=== PATIENT | female | born 1935 | race Caucasian/White ===

== ENCOUNTER 2019-07-28 | Inpatient (IN) | payer MEDICARE ==
--- NOTE | 2019-07-28 16:38 | NUR ---
PT TO ROOM VIA WC ABLE TO STAND AND TRANSFER SELF.
--- NOTE | 2019-07-28 16:50 | NUR ---
RECIEVED CARE OF PATIENT. PT RESTING ON STRETCHER. IV ATTEMPTS IN PROGRESS. PT AO X 3. SKIN PINK WARM AND DRY. VOMITING X 3 DAYS. NO RESPIRATORY OR CARDIAC COMPLAINTS. ABD DISTENDED, PAIN PRESENT WITH PALPATION. PT RESPORTS HAD DIARRHEA STOOL TODAY. AT BEDSIDE.
[2019-07-28 17:06] LABS: HEMATOCRIT 36.3 % (37.0-47.0); HEMOGLOBIN 11.9 g/dl (12.0-16.0); IMMATURE GRANULOCYTES 0.3 % (0.0-5.0); MEAN CELL VOLUME 88.1 fL CALC (80.0-100.0); MEAN CORPUSCULAR HGB 28.9 pG CALC (26.0-32.0); MEAN CORPUSCULAR HGB CONC 32.8 g/L CALC (32.0-36.0); NEUT# 12.8 thou/uL (2.00-7.15); RED BLOOD COUNT 4.12 mill/uL (4.20-5.60); RED CELL DISTRI WIDTH 14.1 % (11.5-15.5)
--- NOTE | 2019-07-28 17:09 | NUR ---
PT HAD APPROX 100 ML EMESIS OF STOOL SMELLING LIQUID. PT REPORTS EMESIS HAD BEEN FOUL TASTING AND SMELLING SINCE YESTERDAY.
[2019-07-28 17:24] LABS: ALBUMIN 4.5 g/dL (3.2-5.0); ALKALINE PHOSPHATASE 75 u/l (38-126); ANION GAP 18 (6-22 (CALC)); BILIRUBIN, TOTAL 1.1 mg/dL (0.0-1.4); BUN 38 mg/dL (8-23); BUN/CREATININE RATIO 73 (12-20 (CALC)); CARBON DIOXIDE 27 mmol/l (22-30); CHLORIDE 94 mmol/l (95-108); CREATININE 0.5 mg/dL (0.5-1.0); GFR > 60 ML/MIN (>=60 (CALC)); GFR FOR AFR.AMER. > 60 ML/MIN (>=60 (CALC)); LIPASE 49 u/l (23-300); SGOT/AST 44 u/l (9-36); SODIUM 134 mmol/l (137-146); TOTAL PROTEIN 7.9 g/dL (6.3-8.2)
--- NOTE | 2019-07-28 18:05 | NUR ---
PT RETURNED FROM XRAY. REPORTS RELIEF FROM VOMITING. AMBULATORY TO BATHROOM UA OBTAINED
[2019-07-28 18:09] LABS: URINE BILIRUBIN - DIPSTICK NEGATIVE (NEGATIVE); URINE BLOOD DIPSTICK LARGE (NEGATIVE); URINE COLOR YELLOW; URINE GLUCOSE - DIPSTICK NEGATIVE (NEGATIVE); URINE KETONE NEGATIVE (NEGATIVE); URINE LEUK ESTERASE NEGATIVE (NEGATIVE); URINE NITRITE - DIPSTICK NEGATIVE (Negative); URINE PROTEIN - DIPSTICK 30 mg/dL (NEG-TRACE); URINE SPECIFIC GRAVITY 1.025
[2019-07-28 18:23] LABS: URINE RBC 25-50 RBC/hpf (0-5); URINE WBC 0-2 WBC/hpf (0-5)
[2019-07-28] MEDS ORDERED: CARVEDILOL25 MG PO (18:54)
[2019-07-28] MEDS ORDERED: LISINOPRIL20 M1 PO (18:55)
[2019-07-28] MEDS ORDERED: HYDROCHLOROT12.5 M1 PO (18:56)
[2019-07-28] MEDS ORDERED: SIMVASTATIN40 MG PO (18:56)
[2019-07-28] MEDS ORDERED: ASPIRIN81 MG PO (18:58)
--- NOTE | 2019-07-28 19:00 | NUR ---
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 UNABLE TO DISCOVER THIS INFORMATION
--- NOTE | 2019-07-28 19:15 | NUR ---
PT RESTING. C/O NAUSEA. #18 NG IN RIGHT NARES. TO LIS AFTER PLACEMENT CHECKED WITH AUSCULTATION. NG DRAINING A MOD AMT OF BROWN LIQUID WITH FECAL SMELL. SECURED TO NOSE. TOLERATED PROCEDURE WELL. 500 CC DRAINED IMMEDIATELY. SISTER AND TO BEDSIDE AFTER PROCEDURE.
--- NOTE | 2019-07-28 20:30 | NUR ---
PT RESTING. NAD. NG DRAINING. NO C/O. ADVISED WILL BE GOING UPSTAIRS AFTER CALLING REPORT.
--- NOTE | 2019-07-28 20:51 | NUR ---
ATTEMPTED TO CALL REPORT. NO ANSWER.
--- NOTE | 2019-07-28 21:11 | NUR ---
REPORT TO FAUSTINO
--- NOTE | 2019-07-28 21:18 | NUR ---
NG TUBE 800 CC OUT. TO FLOOR VIA STRETCHER WITH POCKET MONITOR. UPON ARRIVAL TO FLOOR PT AMBULATED TO SCALE AND THEN TO STRETCHER WITH ASSIST. TOLERATED WELL.
[2019-07-28 21:25] VITALS: BP 179/71
--- NOTE | 2019-07-28 21:25 | NUR ---
PT ARRIVED TO MS2 VIA STRETCHER ACCOMPANIED BY ER NURSE. PT AMBULATED WITH STEADY GAIT TO STANDING SCALE, WT OBTAINED. ORIENTED PT TO ROOM AND CALL LIGHT. DISCUSSED POC, NGT TO Judith WEISS, CHECKED PLACEMENT. NGT TO LIS NOTED LIGHT BROWN LIQUID TO CANISTER. SMELL OF FECAL MATTER. BS ACTIVE X4, INITIATED IVF. ADMISSION ASSESSMENT COMPLETED. CALL LIGHT IN REACH,CONTINUE TO MONITOR.
[2019-07-28 22:04] VITALS: BP 171/69
--- NOTE | 2019-07-28 22:31 | NUR ---
PT MEDICATED FOR ELEVATED BP. ADDITIONAL BLANKET PROVIDED PER REQUEST. PT DENIED ANY OTHER NEEDS AT THIS TIME.
[2019-07-28 23:50] VITALS: BP 118/63
--- NOTE | 2019-07-29 | NUR ---
PT RESTING IN BED, NO SIGNS OF DISTRESS NOTED, RESP EVEN AND UNLABORED. PT VOICES NO NEEDS OR COMPLAINTS AT THIS TIME, CALL LIGHT IN REACH,CONTINUE TO MONITOR.
--- NOTE | 2019-07-29 03:49 | NUR ---
PT RESTING IN BED, NEW CONTAINER HOLDING FLUID FROM NGT CHANGED. 700ML OF BROWN LIQUID STOOL REMOVED. PT VOICES NO NEEDS OR COMPLAINTS AT THIS TIME, CALL LIGHT IN REACH,CONTINUE TO MONITOR.
[2019-07-29 03:50] VITALS: BP 147/68
--- NOTE | 2019-07-29 04:56 | NUR ---
PT HADN'T VOIDED, BLADDER SCANNED 89ML NOTED. PT VOICES NO NEEDS OR COMPLAINTS AT THIS TIME, CALL LIGHT IN REACH,CONTINUE TO MONITOR.
[2019-07-29 07:40] VITALS: BP 90/59
--- NOTE | 2019-07-29 08:50 | NUR ---
DR. KELLER IN ROOM TO DISCUSS POC WITH PT AND FAMILY. ASSESSMENT DONE. TELE IN PLACE. PT DENIES PAIN AT THIS TIME. IVF INFUSING WELL. NG TUBE IN PLACE. CALL LIGHT IN REACH.
--- NOTE | 2019-07-29 09:39 | NUR ---
PT DOWN IN X-RAY.
--- NOTE | 2019-07-29 11:05 | NUR ---
MEDICATED PT WITH ZOFRAN FOR NAUSEA. DR. ROD AT BEDSIDE TO ASSESS PT AND DICUSS POC WITH PT AND FAMILY. NOTIFIED MD RE: PT ST 111 AND BP. CALL LIGHT IN REACH.
[2019-07-29 11:17] VITALS: BP 90/50
[2019-07-29 12:09] LABS: MEAN CELL VOLUME 91.1 fL CALC (80.0-100.0); MEAN CORPUSCULAR HGB 28.8 pG CALC (26.0-32.0); MEAN CORPUSCULAR HGB CONC 31.6 g/L CALC (32.0-36.0); RED BLOOD COUNT 4.97 mill/uL (4.20-5.60); RED CELL DISTRI WIDTH 14.6 % (11.5-15.5)
[2019-07-29 12:15] LABS: HEMATOCRIT 45.3 % (37.0-47.0); HEMOGLOBIN 14.3 g/dl (12.0-16.0)
[2019-07-29 12:28] LABS: POTASSIUM 3.9 mmol/l (3.5-5.1)
[2019-07-29 12:30] VITALS: BP 90/60
[2019-07-29 12:36] LABS: ALBUMIN 3.2 g/dL (3.2-5.0); CREATININE 1.5 mg/dL (0.5-1.0); TOTAL PROTEIN 5.9 g/dL (6.3-8.2)
--- NOTE | 2019-07-29 12:38 | NUR ---
NOTIFIED TOM MATOS RE: LACTIC ACID 8.2.
--- NOTE | 2019-07-29 13:45 | NUR ---
FAMILY IN ROOM. PT WENT TO OR VIA BED BY KATE TEJADA.
--- NOTE | 2019-07-29 16:15 | NUR ---
I SPOKE WITH CELESTINO FROM [facility] @1955. SHE VERIFIED THAT THE MATRESS WOULD BE DELIVERED AND THE CONFIRMATION NUMBER IS #[id number]. [facility] # .
== END 2019-07-29 17:16 | disposition expired | DRG 394 ==
PROVIDERS: Family Medicine; Internal Medicine; ADMIT Internal Medicine
PROC: 5A12012 Performance of Cardiac Output, Single, Manual (ICD-10-PCS; principal; 2019-07-29)
DX: K55.1 Chronic vascular disorders of intestine (principal); N17.9 Acute kidney failure, unspecified; I10 Essential (primary) hypertension; I34.0 Nonrheumatic mitral (valve) insufficiency; E78.5 Hyperlipidemia, unspecified; I95.9 Hypotension, unspecified; R00.0 Tachycardia, unspecified; Z90.710 Acquired absence of both cervix and uterus
CPT/HCPCS: J0131; J1650; Q9967